=== PATIENT | male | born 1960 | race Caucasian/White ===

== ENCOUNTER 2023-06-30 09:28 | Emergency (ER) | payer MEDICAID ==
[~2023-06-30] VITALS: Ht 167.6 cm; Wt 81.1 kg
[2023-06-30 09:33] VITALS: BP 202/120; PULSE 65; RESP 16; TEMP 98; O2SAT 98
== END 2023-06-30 10:36 | disposition home or self-care (01) ==
LOC: ER 09:29
DX: K40.90 Unilateral inguinal hernia, without obstruction or gangrene, not specified as recurrent (principal)
CPT/HCPCS: 99281